=== PATIENT | male | born 1955 | race Caucasian/White ===

== ENCOUNTER 2020-06-15 08:29 | Inpatient (IN) | payer MEDICARE, BC ==
[2020-06-15 12:00] VITALS: BP 168/95
[2020-06-15] MEDS ORDERED: Magnesium Hydroxide (MOM) 30 mL UDC PO PRN (12:34)
--- NOTE | 2020-06-15 18:29 | History and Physical ---
History of Present Illness - HPI Chief Complaint: Psychosis HPI: * Transferred from [facility] * Transferred for suicidal ideation and homicidal ideation Vital Signs: Last Vital Signs Temp 99.2 F 06/15/20 14:00 Pulse 67 06/15/20 14:00 Resp 20 06/15/20 14:00 BP 136/95 06/15/20 14:00 Pulse Ox 98 06/15/20 14:00 Past Medical History Cardiovascular: Report: HTN Pulmonary: Report: No Pertinent Hx EXEC. CREATIVE DIRECTOR: Report: No Pertinent Hx GI: Report: GERD Psych: Report: Anxiety Musculoskeletal: Report: Low Back Pain Rheumatologic: Report: Other (Osteoporosis) Infectious Disease: Report: No Pertinent Hx Renal/: Report: No Pertinent Hx Endocrine: Report: Hypothyroidism Dermatology: Report: No Pertinent Hx Other History: * Gastrinoma * Perforated intestine - Past Surgical History Past Surgical History: Other (Abdominal Surgery Esophageal Dilation) Family Medical History - Family Member Father History Unknown: Yes Social History Smoke: No Alcohol: None Drugs: None Lives: Other (Unknown) - Medications Home Medications: Home Medication Medication Instructions Recorded Type Acetaminophen [Pain Relief] 1,000 mg PO 06/15/20 History Alprazolam 0.5 mg PO PRN 06/15/20 History Atorvastatin Calcium [Lipitor] 40 mg PO HS 06/15/20 History Levothyroxine Sodium [Levoxyl] 100 mcg PO QDAC 06/15/20 History Pantoprazole Sodium 40 mg PO QDAC 06/15/20 History QUEtiapine Fumarate [SEROquel] 25 mg PO DAILY 06/15/20 History - Allergies Allergies/Adverse Reactions: Allergies Allergy/AdvReac Type Severity Reaction Status Date / Time codeine Allergy Unverified 06/15/20 12:04 morphine Allergy Unverified 06/15/20 12:04 Review of Systems - Review of Systems Constitutional: Report: No Significant Eyes: Report: No Significant ENT: Report: No Significant Respiratory: Report: No Significant Cardiovascular: Report: No Significant Gastrointestinal: Report: No Significant Genitourinary: Report: No Significant Musculoskeletal: Report: No Significant Skin: Report: No Significant Neurological: Report: No Significant Physical Exam - Physical Exam HEENT: Report: Ears Nose Throat within normal limits, Pharnyx within normal limits Neck: Report: Within normal limits Cardiovascular Systems: Report: Regular, Rate and Rhythm, no murmurs noted Respiratory: Report: Clear to Auscultation of lung carlos, Breath Sounds are within normal limits Abdomen: Report: Non-tender to palpation, Bowel Sounds are within normal limits Back: Report: Inspection of back is within normal limits. Extremities: Report: Non-tender to palpation., Patient had full range of motion , No pedal edema was noted on inspection Skin: Report: Color of skin is within normal limits, Warm, Dry, No Rashes noted of the skin Neuro/Psych: Report: CN II-XII intact, No motor deficit, No sensory deficit, No new focal deficits - Lab Results All Lab Results last 24 hours: Laboratory Results - last 24 hr 06/15/20 11:59 POC Glucose 97 - Assessment Assessment: * Acute Psychosis * Allergies to Codeine and Morphine * GERD * Anxiety * HTN * Backache * Osteoporosis * Gastrinoma * H/O Perforated Intestine * S/P Abdominal Surgery * S/P Esophageal Dilation - Plan Plan: * Admit to Geropsych unit * Psychiatry consult * Obtain labs * Continue home meds Cranial Nerve Assessment - CRANIAL NERVES alcohol swab:: Yes Distinguishes movements in peripheral field.:: Yes up, down, sideways:: Yes on forehead, cheeks and chin, chews symmetrically:: Yes FACIAL VII: upper: Frowns Symmetrically:: Yes FACIAL VII: Lower: Smiles Symmetrically:: Yes both ears:: Yes GLOSS-PHARYNGEAL IX: Has gag reflex:: Yes VAGUS X: Can make guttural sounds:: Yes ACCESSORY XI: Shrugs shoulders symmetrically:: Yes tremors or fasciculation's:: Yes - MOTOR spasticity, cogwheel, atrophy, tremor, asterixis, other: Yes - COORDINATION Finger to nose, heel to hilliard, KRISTAL, gait, Romberg: Yes - SENSORY signs, Brudzinski, Kernig, neck rigidity:: Yes - REFLEXES Brachioradials Right:: Yes Brachioradials Left:: Yes Biceps Right:: Yes Biceps Left:: Yes Triceps Right:: Yes Triceps Left:: Yes Knee Right:: Yes Knee Left:: Yes Ankle Right:: Yes Ankle Left:: Yes Babinski Right:: No Babinski Left:: No
[2020-06-15] MEDS ORDERED: Acetaminophen 500 MG TAB PO PRN (18:34)
[2020-06-15] MEDS ORDERED: Pantoprazole 40 mg EC Tab PO SCH (21:00)
[2020-06-15] MEDS ORDERED: Non-Formulary Item 1 EA (Atorvastatin Calcium [Lipitor] 40 MG) PO SCH (21:00)
[2020-06-16] MEDS: Levothyroxine 0.1 Mg Tab PO SCH (06:50)
[2020-06-16] MEDS: Pantoprazole 40 mg EC Tab PO SCH (06:51)
[2020-06-16] MEDS ORDERED: Pantoprazole 40 mg/Packet PO SCH (07:30)
[2020-06-16] MEDS ORDERED: Levothyroxine 0.1 Mg Tab PO SCH (07:30)
[2020-06-16] MEDS: Multivitamin Tab PO SCH (08:23)
[2020-06-16 14:03] LABS: CREATININE - SERUM 0.96 mg/dL (0.70-1.30); POTASSIUM SERUM 4.1 mmol/L (3.5-5.1)
[2020-06-16 14:04] LABS: BILIRUBIN,TOTAL 0.8 mg/dL (0.0-1.0); CALCIUM SERUM 9.5 mg/dL (8.4-10.2); TOTAL PROTEIN,SERUM 7.3 g/dL (6.4-8.3)
--- NOTE | 2020-06-16 21:31 | Psychiatric Evaluation ---
DATE OF SERVICE: 06/16/2020 IDENTIFYING INFORMATION: The patient is a 64-year-old male. HISTORY OF PRESENT ILLNESS: The patient was admitted on a hold for grave disability, unable to provide for self-care, worsening mood, psychotic symptoms, delusions and confusion. The patient himself was not a very good historian. He admits that he has been depressed for the last 1-2 years, unable to sleep, unable to eat, hearing voices telling him Satan is coming. They are not command hallucination. He has been hearing voices all the time for the last 2-3 years. He denies any current intent to harm himself or anyone. He reports paranoid, delusional onset of mental illness this interval of this has been going on for the last 2 years. PAST PSYCHIATRIC HISTORY: The patient reported that he has a history of prior hospitalization 2 years ago. He was in hospitalization, he said for a year, I am not sure if this is correct. SUBSTANCE ABUSE HISTORY: The patient denies any current substance abuse. He has been sober for years. He used to use cocaine and THC. MEDICAL HISTORY: Deferred to the medical doctor. FAMILY AND SOCIAL HISTORY: The patient has been since 1975, has 3 girls. He reports that he has high school education, worked in construction. The patient reports his is 39, which is probably incorrected, he report the age of his children, a 34, 36, and 37 unless he is a different one, unable to tell me that. He denies family psychiatric disorder. Denies any history of abuse. MENTAL STATUS EXAMINATION: The patient is appropriately dressed, not well groomed. He was in bed. He has no eye contact, whatsoever. He was rambling at times. He was alert. He was unable to tell me the date. He knew he was in the hospital because of COVID-19 at the beginning, then later agreed that he has been depressed, hearing voices. He was hearing voices of demons telling him, Satan is coming. He denies any intent to harm himself or anyone. He seems to have average intelligence just prior to give information, fund of knowledge and knowledge of the president of [facility]. Concentration is poor, at times unable to answer questions appropriately and spell forward and backward. Long-term is good significant for age; however, unable to remember the age of his 's. Recent memory is poor, unable to remember exact details of that admission, has to be prompted, he felt he was here for COVID-19. Immediate memory is poor, cannot concentrate enough and repeat things after me. Insight about his illness is poor, does not realize what problem he has. Judgment is poor with him hearing voices. IMPRESSION: Major depression, recurrent, severe, with psychosis. MEDICAL DIAGNOSES: Deferred to the medical doctor. His asset, he is accepting treatment. Negative poor coping skills. INITIAL TREATMENT PLAN: The patient will be continued with the Seroquel, will be increasing the dose. He will do adding Lexapro. We will do group therapy, milieu therapy, and individual therapy. ESTIMATED LENGTH OF STAY: 3-7 days. DISCHARGE CRITERIA: Decreasing psychosis, no longer suicidal after discharge, outpatient treatment. JOB# [id number]
[2020-06-17] MEDS ORDERED: Haloperidol Lactate 5 mg/mL 1mL Vial IM ONE (05:20)
[2020-06-17] MEDS: Pantoprazole 40 mg EC Tab PO SCH (07:13)
[2020-06-17] MEDS: Levothyroxine 0.1 Mg Tab PO SCH (07:13)
[2020-06-17 07:29] LABS: A1C 5.7 % (4.8-5.6)
[2020-06-17] MEDS: Multivitamin Tab PO SCH (08:49)
--- NOTE | 2020-06-17 17:29 | Progress Notes ---
DATE: 06/17/2020 Case was discussed with staff of the patient, reviewed records. He was very agitated this morning, had to be medicated. He was delusional, not making sense, paranoid, continues to have poor insight, unable to make safe plan for self-care. No side effects with the medication, no sedation, no nausea, no extrapyramidal symptoms. I will be increasing his Seroquel to 50 mg twice a day and continue with the 50 mg at bedtime. He is still confused, easily agitated, overwhelmed. I will continue to work with the patient in group therapy, milieu therapy, and adjust the medication as needed. JOB# [id number]
[2020-06-18] MEDS: Levothyroxine 0.1 Mg Tab PO SCH (06:31)
[2020-06-18] MEDS: Pantoprazole 40 mg EC Tab PO SCH (06:31)
[2020-06-18] MEDS: Multivitamin Tab PO SCH (08:29)
--- NOTE | 2020-06-18 19:47 | Progress Notes ---
DATE: 06/18/2020 Case was discussed with staff of the patient, reviewed records. The patient apparently could not sleep well last night, continues to be confused, delusional, continues to be unable to make safe plan for self-care. Continues to have poor insight, unpredictable, impulsive, needing redirection. I will be increasing his Seroquel dose to 150 mg at bedtime to help with his sleep. The patient is unpredictable, impulsive, needing redirection. He is also on Ambien 5 mg at bedtime, so that does not work, we will make further adjustment. We will continue to work with the patient in group therapy, milieu therapy, and adjust the medication as needed. JOB# [id number]
[2020-06-19] MEDS: Pantoprazole 40 mg EC Tab PO SCH (06:55)
[2020-06-19] MEDS: Levothyroxine 0.1 Mg Tab PO SCH (06:55)
[2020-06-19] MEDS: Multivitamin Tab PO SCH (08:46)
--- NOTE | 2020-06-19 12:14 | Internal Medicine Prog Note ---
Internal Medicine Subjective - Subjective Service Date: 06/19/20 Patient seen and examined:: without staff Patient is:: awake Patient Complaints of:: congestion Per staff patient has:: no adverse event Internal Medicine Objective - Results Result Diagrams: 06/16/20 10:33 Recent Labs: Laboratory Last Values Sodium 126 mmol/L (136-145) L 06/16/20 10:33 Potassium 4.1 mmol/L (3.5-5.1) 06/16/20 10:33 Chloride 93 mmol/L (98-107) L 06/16/20 10:33 Carbon Dioxide 24 mmol/L (23-29) 06/16/20 10:33 Anion Gap 13 (5-15) 06/16/20 10:33 BUN 13 mg/dL (8-21) 06/16/20 10:33 Creatinine 0.96 mg/dL (0.70-1.30) 06/16/20 10:33 Glucose 85 mg/dL (70-99) 06/16/20 10:33 POC Glucose 97 MG/DL (70 - 105) 06/15/20 11:59 Calcium 9.5 mg/dL (8.4-10.2) 06/16/20 10:33 Total Bilirubin 0.8 mg/dL (0.0-1.0) 06/16/20 10:33 AST 26 U/L (10-37) 06/16/20 10:33 ALT 29 U/L (12-78) 06/16/20 10:33 Alkaline Phosphatase 53 U/L (46-116) 06/16/20 10:33 Total Protein 7.3 g/dL (6.4-8.3) 06/16/20 10:33 Albumin 3.9 g/dL (3.4-5.0) 06/16/20 10:33 Triglycerides 59 mg/dL (30-150) 06/16/20 10:33 Cholesterol 141 mg/dL (<200) 06/16/20 10:33 LDL Cholesterol 59 mg/dL (0-129) 06/16/20 10:33 HDL Cholesterol 73 mg/dL (>45) 06/16/20 10:33 - Physical Exam Vitals and I&O: Vital Signs Temp 0 F 06/18/20 20:43 Pulse 72 06/18/20 14:50 Resp 20 06/18/20 14:50 BP 136/74 06/18/20 14:50 Pulse Ox 96 06/18/20 14:50 Intake & Output 06/18/20 06/19/20 06/19/20 18:59 06:59 18:59 Intake Total 240 Balance 240 Intake: Oral 240 Other: # Voids 3 # Bowel Movements 0 Active Medications: Current Medications Acetaminophen (Tylenol Extra Strength) 1,000 mg PO Q6H PRN PRN Reason: Pain (Mild 1-3) Stop: 08/14/20 18:44 Last Admin: 06/17/20 20:15 Dose: 1,000 mg Atorvastatin Calcium (Lipitor) 40 mg PO HS ANDRES; Protocol Stop: 08/14/20 20:59 Last Admin: 06/18/20 21:29 Dose: Not Given Diphenhydramine HCl (Benadryl) 50 mg PO QID PRN PRN Reason: Itching Stop: 08/15/20 17:21 Last Admin: 06/18/20 06:31 Dose: 50 mg Escitalopram Oxalate (Lexapro) 10 mg PO DAILY ANDRES; Protocol Stop: 08/16/20 08:59 Last Admin: 06/19/20 08:46 Dose: 10 mg Latanoprost (Xalatan 0.005% Ophth Soln) 1 drop EACH EYE HS ANDRES Stop: 08/15/20 20:59 Last Admin: 06/18/20 21:28 Dose: Not Given Levothyroxine Sodium (Synthroid) 0.1 mg PO QDAC ANDRES Stop: 08/15/20 07:29 Last Admin: 06/19/20 06:55 Dose: Not Given Lorazepam (Ativan) 0.5 mg PO Q4HR PRN; Protocol PRN Reason: Anxiety Stop: 07/15/20 12:33 Last Admin: 06/18/20 01:43 Dose: 0.5 mg Magnesium Hydroxide (Milk Of Magnesia) 30 ml PO HS PRN PRN Reason: Constipation Multivitamins/Vitamin C (Theragran) 1 tab PO DAILY ANDRES Stop: 08/15/20 08:59 Last Admin: 06/19/20 08:46 Dose: 1 tab Pantoprazole Sodium (Protonix) 40 mg PO QDAC ANDRES Stop: 08/15/20 07:29 Last Admin: 06/19/20 06:55 Dose: Not Given Quetiapine Fumarate (Seroquel) 50 mg PO BID ANDRES; Protocol Stop: 08/16/20 16:59 Last Admin: 06/19/20 08:46 Dose: 50 mg Quetiapine Fumarate (Seroquel) 150 mg PO HS ANDRES; Protocol Stop: 08/17/20 20:59 Last Admin: 06/18/20 21:29 Dose: Not Given Zolpidem Tartrate (Ambien) 5 mg PO HS PRN PRN Reason: Insomnia Stop: 08/14/20 12:33 Last Admin: 06/17/20 20:14 Dose: 5 mg General: weak HEENT: NC/AT, PERRLA Neck: Supple Lungs: CTAB Cardiovascular: RRR Abdomen: soft Extremities: clear Neurological: no change Internal Medicine Assmt/Plan - Assessment Assessment: 1. Bhargav-Su 2. HTN 3. Hypothyroidism - Plan Plan: continue supportive care continue synthroid d/w r.n. reviewed complete medical records
[2020-06-19 14:17] LABS: BILIRUBIN,TOTAL 0.9 mg/dL (0.0-1.0); CALCIUM SERUM 9.4 mg/dL (8.4-10.2); CREATININE - SERUM 0.91 mg/dL (0.70-1.30); TOTAL PROTEIN,SERUM 6.9 g/dL (6.4-8.3)
--- NOTE | 2020-06-19 20:34 | Progress Notes ---
DATE: 06/19/2020 Case was discussed with staff of the patient, reviewed records. The patient has been refusing medication yesterday and today. Continues to be unpredictable, impulsive, paranoid, and delusional. Continues to be psychotic, unable to make safe plan for self-care. He hears voices. The voices tell him that Satan is coming. When I tried talk to him about not taking his medication, unable to answer any of my questions. I discussed with him the side effects. The patient in general is still a poor historian, admits to using cocaine and THC and I will be initiating a Riese on this patient for his treatment and he is currently on Lexapro 10 mg daily, Seroquel 50 mg twice a day and 150 mg at bedtime. I will continue outpatient group therapy, milieu therapy, adjust medication as needed. JOB# [id number]
[2020-06-20] MEDS: Pantoprazole 40 mg EC Tab PO SCH (06:43)
[2020-06-20] MEDS: Levothyroxine 0.1 Mg Tab PO SCH (06:43)
[2020-06-20] MEDS: Multivitamin Tab PO SCH (09:31)
--- NOTE | 2020-06-20 14:42 | Internal Medicine Prog Note ---
Internal Medicine Subjective - Subjective Service Date: 06/20/20 Patient seen and examined:: without staff Patient is:: awake Patient Complaints of:: congestion Per staff patient has:: no adverse event, no episodes of fall Internal Medicine Objective - Results Result Diagrams: 06/19/20 09:30 Recent Labs: Laboratory Last Values Sodium 125 mmol/L (136-145) L 06/19/20 09:30 Potassium 4.0 mmol/L (3.5-5.1) 06/19/20 09:30 Chloride 95 mmol/L (98-107) L 06/19/20 09:30 Carbon Dioxide 20 mmol/L (23-29) L 06/19/20 09:30 Anion Gap 14 (5-15) 06/19/20 09:30 BUN 22 mg/dL (8-21) H 06/19/20 09:30 Creatinine 0.91 mg/dL (0.70-1.30) 06/19/20 09:30 Glucose 103 mg/dL (70-99) H 06/19/20 09:30 POC Glucose 97 MG/DL (70 - 105) 06/15/20 11:59 Calcium 9.4 mg/dL (8.4-10.2) 06/19/20 09:30 Total Bilirubin 0.9 mg/dL (0.0-1.0) 06/19/20 09:30 AST 47 U/L (10-37) H 06/19/20 09:30 ALT 37 U/L (12-78) 06/19/20 09:30 Alkaline Phosphatase 49 U/L (46-116) 06/19/20 09:30 Total Protein 6.9 g/dL (6.4-8.3) 06/19/20 09:30 Albumin 3.8 g/dL (3.4-5.0) 06/19/20 09:30 Triglycerides 59 mg/dL (30-150) 06/16/20 10:33 Cholesterol 141 mg/dL (<200) 06/16/20 10:33 LDL Cholesterol 59 mg/dL (0-129) 06/16/20 10:33 HDL Cholesterol 73 mg/dL (>45) 06/16/20 10:33 - Physical Exam Vitals and I&O: Vital Signs Temp 0 F 06/19/20 20:56 Pulse 72 06/19/20 15:36 Resp 20 06/19/20 20:00 BP 144/81 06/19/20 15:36 Pulse Ox 97 06/19/20 15:36 Intake & Output 06/19/20 06/20/20 06/20/20 18:59 06:59 18:59 Intake Total 800 480 Balance 800 480 Intake: Oral 800 480 Other: # Voids 3 2 # Bowel Movements 1 0 Active Medications: Current Medications Acetaminophen (Tylenol Extra Strength) 1,000 mg PO Q6H PRN PRN Reason: Pain (Mild 1-3) Stop: 08/14/20 18:44 Last Admin: 06/17/20 20:15 Dose: 1,000 mg Atorvastatin Calcium (Lipitor) 40 mg PO HS ANDRES; Protocol Stop: 08/14/20 20:59 Last Admin: 06/19/20 20:25 Dose: 40 mg Diphenhydramine HCl (Benadryl) 50 mg PO QID PRN PRN Reason: Itching Stop: 08/15/20 17:21 Last Admin: 06/18/20 06:31 Dose: 50 mg Escitalopram Oxalate (Lexapro) 10 mg PO DAILY ANDRES; Protocol Stop: 08/16/20 08:59 Last Admin: 06/20/20 09:31 Dose: 10 mg Latanoprost (Xalatan 0.005% Ophth Soln) 1 drop EACH EYE HS ANDRES Stop: 08/15/20 20:59 Last Admin: 06/19/20 20:26 Dose: Not Given Levothyroxine Sodium (Synthroid) 0.1 mg PO QDAC ANDRES Stop: 08/15/20 07:29 Last Admin: 06/20/20 06:43 Dose: 0.1 mg Lorazepam (Ativan) 0.5 mg PO Q4HR PRN; Protocol PRN Reason: Anxiety Stop: 07/15/20 12:33 Last Admin: 06/20/20 09:31 Dose: 0.5 mg Magnesium Hydroxide (Milk Of Magnesia) 30 ml PO HS PRN PRN Reason: Constipation Multivitamins/Vitamin C (Theragran) 1 tab PO DAILY ANDRES Stop: 08/15/20 08:59 Last Admin: 06/20/20 09:31 Dose: 1 tab Pantoprazole Sodium (Protonix) 40 mg PO QDAC ANDRES Stop: 08/15/20 07:29 Last Admin: 06/20/20 06:43 Dose: 40 mg Quetiapine Fumarate (Seroquel) 50 mg PO BID ANDRES; Protocol Stop: 08/16/20 16:59 Last Admin: 06/20/20 09:31 Dose: 50 mg Quetiapine Fumarate (Seroquel) 150 mg PO HS ANDRES; Protocol Stop: 08/17/20 20:59 Last Admin: 06/19/20 20:26 Dose: 150 mg Zolpidem Tartrate (Ambien) 5 mg PO HS PRN PRN Reason: Insomnia Stop: 08/14/20 12:33 Last Admin: 06/19/20 20:26 Dose: 5 mg General: weak HEENT: NC/AT, PERRLA Neck: Supple Lungs: CTAB Cardiovascular: RRR Abdomen: soft Extremities: clear Neurological: no change Internal Medicine Assmt/Plan - Assessment Assessment: 1. Bhargav-Su 2. HTN 3. Hypothyroidism 4. Hyponatremia - Plan Plan: continue supportive care continue synthroid d/w r.n. reviewed complete medical records Nutritional Asmnt/Malnutr-PDOC - Dietary Evaluation Malnutrition Findings (Please click <Entered> for more info): Nutritional Asmnt/Malnutrition Start: 06/19/20 13: 59 Text: Status: Complete Freq: Protocol: Document 06/19/20 14:00 RAGHU (Rec: 06/19/20 14:03 RAGHU [id number]) Nutritional Asmnt/Malnutrition Patient General Information Nutritional Screening Moderate Risk Diagnosis Grave Disability Hold Pertinent Medical Hx/Surgical Hx GERD, HTN, Anxiety, Osteoporosis, Hypothyroidism, Gastrinoma, Perforated Intestine Subjective Information Pt is a 64-year-old male admitted on 06/15 d/t hold for Grave Disability, delusions and confusion. Pt is eating an estimated 100% of meals since admit date (x3 days) Per Meal/Nutrition Activity Record. Dietary is currently providing an estimated 1750 kcals and 107 gm Pro to meet 100% kcal and 100+% Pro needs. Per Psychiatric evaluation, Pt admits depression, being unable to eat for the last 1-2 years. Visited pt in room, states hes eating fine. When asked about his appetite and previous eating habits he insisted, its done, it doesn t matter, pt would not say more after this. Anthropometrics HT: 57 WT: 130 LB (59.09 kg) BMI: 20.36 (normal) GI/ Skin Integrity GI: WNL, Soft, Non-tender, Flat BM: 06/17 x1 I/O: 240/Not Noted Skin: WNL, Intact Twan: 22 Diet Order: CCHO, Cardiac Estimated Energy Needs: ( Geriatric, CBW) 8736-2187 kcals (25-30 kcals/ kg) 60-70g Pro (1.0-1.2 g/kg) 4613-8383 ml (25-30 ml/kg) Current Diet Order/ Nutrition Support CCHO, Cardiac Patient / S.O Can Pertinent Medications Lipitor, Synthroid, MOM (PRN), Theragran, Protonix Pertinent Labs 06/16: Na 124, Cl 93 Nutritional Hx/Data Height 1.7 m Height (Calculated Centimeters) 170.2 Current Weight (lbs) 58.967 kg Weight (Calculated Kilograms) 59.0 Weight (Calculated Grams) 46069.0 Maribel Body Weight 148 LB (67.27 kg) % Maribel Body Weight 88 Body Mass Index (BMI) 20.3 Weight Status Approriate GI Symptoms Last BM 06/17 x1 Skin Integrity/Comment: Skin: WNL, Intact Twan: 22 Current %PO Good (75-100%) Estimated Nutritional Goals BEE in Kcals: Using Current wt Calories/Kcals/Kg 25-30 Kcals Calculated 1199-4511 Protein: Using Current wt Protein g/k.0-1.2 Protein Calculated 60-70 Fluid: ml 5626-1507 ml (25-30 ml/kg) Nutritional Problem 1. Problem Problem Altered nutrition related labs Etiology r/t electrolyte imbalance Signs/Symptoms: aeb labs (06/16) Na 124, Cl 93. Malnutrition Related to Morbid Obesity Malnutrition related to morbid obesity No Intervention/Recommendation Comments Continue CCHO, Cardiac diet as tolerated. Expected Outcomes/Goals Expected Outcomes/Goals 1.PO intake to continue to meet >75% of estimated nutritional needs. 2.Monitor PO intake, wt, nutrition related labs to trend WNL, and skin integrity. 3.F/U as low risk in 7-10 days , 06/26-06/29.
--- NOTE | 2020-06-20 23:33 | Progress Notes ---
DATE: 06/20/2020 Case was discussed with staff of the patient, reviewed records. Felix mulligan is not scheduled yet, which I found it yesterday. He already has a parole causing today for his 5250 hold. His left me a message to call his doctor, Dr. ismael chawla, his primary care physician. I called his cell phone back to convey the message because there was no place and also I left off in his office a message, gave him my cell phone. The patient continues to be in isolation, continues to have poor insight, continues to be unable to state a safe plan for self-care. The staff reports, however, he started taking his medication. No side effects with the medication, no sedation, no nausea, no extrapyramidal symptoms. He admitted to feeling depressed, but yet he is still a very poor historian. He is not sure why he is here. He asked me to explain to him why he is here and I told him what happened when he came, he is not sure if this is true or not. He continues to be confused. He has cognitive disability and we will continue outpatient group therapy, milieu therapy, and adjust medications as needed. JOB# [id number] NICOLE
[2020-06-21] MEDS: Pantoprazole 40 mg EC Tab PO SCH (06:40)
[2020-06-21] MEDS: Levothyroxine 0.1 Mg Tab PO SCH (06:40)
[2020-06-21] MEDS: Multivitamin Tab PO SCH (08:45)
--- NOTE | 2020-06-21 12:07 | Progress Notes ---
DATE: 06/21/2020 Case was discussed with staff of the patient, reviewed records. I spoke to his physician yesterday, Dr. Benson Chris, who told me that the patient has never been seen by a psychiatrist before that has been depressed for the past 2 years with multiple losses. They left their home in [place], now they live in a small apartment. He has a lot of medical condition. He has gastrinoma. He had multiple surgeries and has been in lot of pain, has been on opiates. The patient has been depressed for the last 2 years. The patient so far has been taking medication with no side effects. He is sleeping better, eating better. He is still internally preoccupied. Continues to be unable to participate in meaningful conversation or make safe plan for self-care. No side effects with the medication, no sedation, no nausea, no extrapyramidal symptoms. I am trying to reach his for further information. We will continue outpatient group therapy, milieu therapy, adjust medication as needed. JOB# [id number] [facility]
--- NOTE | 2020-06-21 13:55 | Internal Medicine Prog Note ---
Internal Medicine Subjective - Subjective Service Date: 06/21/20 Patient seen and examined:: without staff Patient is:: awake Patient Complaints of:: congestion Per staff patient has:: no adverse event, no episodes of fall Internal Medicine Objective - Results Result Diagrams: 06/19/20 09:30 Recent Labs: Laboratory Last Values Sodium 125 mmol/L (136-145) L 06/19/20 09:30 Potassium 4.0 mmol/L (3.5-5.1) 06/19/20 09:30 Chloride 95 mmol/L (98-107) L 06/19/20 09:30 Carbon Dioxide 20 mmol/L (23-29) L 06/19/20 09:30 Anion Gap 14 (5-15) 06/19/20 09:30 BUN 22 mg/dL (8-21) H 06/19/20 09:30 Creatinine 0.91 mg/dL (0.70-1.30) 06/19/20 09:30 Glucose 103 mg/dL (70-99) H 06/19/20 09:30 POC Glucose 97 MG/DL (70 - 105) 06/15/20 11:59 Calcium 9.4 mg/dL (8.4-10.2) 06/19/20 09:30 Total Bilirubin 0.9 mg/dL (0.0-1.0) 06/19/20 09:30 AST 47 U/L (10-37) H 06/19/20 09:30 ALT 37 U/L (12-78) 06/19/20 09:30 Alkaline Phosphatase 49 U/L (46-116) 06/19/20 09:30 Total Protein 6.9 g/dL (6.4-8.3) 06/19/20 09:30 Albumin 3.8 g/dL (3.4-5.0) 06/19/20 09:30 Triglycerides 59 mg/dL (30-150) 06/16/20 10:33 Cholesterol 141 mg/dL (<200) 06/16/20 10:33 LDL Cholesterol 59 mg/dL (0-129) 06/16/20 10:33 HDL Cholesterol 73 mg/dL (>45) 06/16/20 10:33 - Physical Exam Vitals and I&O: Vital Signs Temp 99.4 F 06/21/20 06:12 Pulse 97 06/21/20 06:12 Resp 19 06/21/20 06:12 BP 138/89 06/21/20 06:12 Pulse Ox 95 06/21/20 06:12 Intake & Output 06/20/20 06/21/20 06/21/20 18:59 06:59 18:59 Intake Total 1000 120 Balance 1000 120 Intake: Oral 1000 120 Other: # Voids 2 3 # Bowel Movements 0 Active Medications: Current Medications Acetaminophen (Tylenol Extra Strength) 1,000 mg PO Q6H PRN PRN Reason: Pain (Mild 1-3) Stop: 08/14/20 18:44 Last Admin: 06/17/20 20:15 Dose: 1,000 mg Atorvastatin Calcium (Lipitor) 40 mg PO HS ANDRES; Protocol Stop: 08/14/20 20:59 Last Admin: 06/20/20 20:13 Dose: 40 mg Diphenhydramine HCl (Benadryl) 50 mg PO QID PRN PRN Reason: Itching Stop: 08/15/20 17:21 Last Admin: 06/18/20 06:31 Dose: 50 mg Escitalopram Oxalate (Lexapro) 10 mg PO DAILY ANDRES; Protocol Stop: 08/16/20 08:59 Last Admin: 06/21/20 08:45 Dose: 10 mg Latanoprost (Xalatan 0.005% Oph Soln) 1 drop EACH EYE HS ANDRES Stop: 08/15/20 20:59 Last Admin: 06/20/20 20:13 Dose: Not Given Levothyroxine Sodium (Synthroid) 0.1 mg PO QDAC ANDRES Stop: 08/15/20 07:29 Last Admin: 06/21/20 06:40 Dose: 0.1 mg Lorazepam (Ativan) 0.5 mg PO Q4HR PRN; Protocol PRN Reason: Anxiety Stop: 07/15/20 12:33 Last Admin: 06/20/20 09:31 Dose: 0.5 mg Magnesium Hydroxide (Milk Of Magnesia) 30 ml PO HS PRN PRN Reason: Constipation Multivitamins/Vitamin C (Theragran) 1 tab PO DAILY ANDRES Stop: 08/15/20 08:59 Last Admin: 06/21/20 08:45 Dose: 1 tab Pantoprazole Sodium (Protonix) 40 mg PO QDAC ANDRES Stop: 08/15/20 07:29 Last Admin: 08/19/20 06:40 Dose: 40 mg Quetiapine Fumarate (Seroquel) 50 mg PO BID ANDRES Stop: 08/19/20 16:59 Last Admin: 06/21/20 08:46 Dose: 50 mg Quetiapine Fumarate (Seroquel) 200 mg PO HS ANDRES Stop: 08/20/20 20:59 Zolpidem Tartrate (Ambien) 5 mg PO HS PRN PRN Reason: Insomnia Stop: 08/14/20 12:33 Last Admin: 06/19/20 20:26 Dose: 5 mg General: weak HEENT: NC/AT, PERRLA Neck: Supple Lungs: CTAB Cardiovascular: RRR Abdomen: soft Extremities: clear Neurological: no change Internal Medicine Assmt/Plan - Assessment Assessment: 1. Bhargav-Su 2. HTN 3. Hypothyroidism 4. Hyponatremia - Plan Plan: continue to monitor hyponatremia continue supportive care continue synthroid d/w r.n. reviewed complete medical records Nutritional Asmnt/Malnutr-PDOC - Dietary Evaluation Malnutrition Findings (Please click <Entered> for more info): Nutritional Asmnt/Malnutrition Start: 06/19/20 13: 59 Text: Status: Complete Freq: Protocol: Document 06/19/20 14:00 RAGHU (Rec: 06/19/20 14:03 RAGHU [id number]) Nutritional Asmnt/Malnutrition Patient General Information Nutritional Screening Moderate Risk Diagnosis Grave Disability Hold Pertinent Medical Hx/Surgical Hx GERD, HTN, Anxiety, Osteoporosis, Hypothyroidism, Gastrinoma, Perforated Intestine Subjective Information Pt is a 64-year-old male admitted on 06/15 d/t hold for Grave Disability, delusions and confusion. Pt is eating an estimated 100% of meals since admit date (x3 days) Per Meal/Nutrition Activity Record. Dietary is currently providing an estimated 1750 kcals and 107 gm Pro to meet 100% kcal and 100+% Pro needs. Per Psychiatric evaluation, Pt admits depression, being unable to eat for the last 1-2 years. Visited pt in room, states hes eating fine. When asked about his appetite and previous eating habits he insisted, its done, it doesn t matter, pt would not say more after this. Anthropometrics HT: 57 WT: 130 LB (59.09 kg) BMI: 20.36 (normal) GI/ Skin Integrity GI: WNL, Soft, Non-tender, Flat BM: 06/17 x1 I/O: 240/Not Noted Skin: WNL, Intact Twan: 22 Diet Order: CCHO, Cardiac Estimated Energy Needs: ( Geriatric, CBW) 5166-0622 kcals (25-30 kcals/ kg) 60-70g Pro (1.0-1.2 g/kg) 8636-3792 ml (25-30 ml/kg) Current Diet Order/ Nutrition Support CCHO, Cardiac Patient / S.O Can Pertinent Medications Lipitor, Synthroid, MOM (PRN), Theragran, Protonix Pertinent Labs 06/16: Na 124, Cl 93 Nutritional Hx/Data Height 1.7 m Height (Calculated Centimeters) 170.2 Current Weight (lbs) 58.967 kg Weight (Calculated Kilograms) 59.0 Weight (Calculated Grams) 02916.0 [place] Body Weight 148 LB (67.27 kg) % [place] Body Weight 88 Body Mass Index (BMI) 20.3 Weight Status Approriate GI Symptoms Last BM 06/17 x1 Skin Integrity/Comment: Skin: WNL, Intact Twan: 22 Current %PO Good (75-100%) Estimated Nutritional Goals BEE in Kcals: Using Current wt Calories/Kcals/Kg 25-30 Kcals Calculated 2211-6769 Protein: Using Current wt Protein g/k.0-1.2 Protein Calculated 60-70 Fluid: ml 0306-1911 ml (25-30 ml/kg) Nutritional Problem 1. Problem Problem Altered nutrition related labs Etiology r/t electrolyte imbalance Signs/Symptoms: aeb labs (06/16) Na 124, Cl 93. Malnutrition Related to Morbid Obesity Malnutrition related to morbid obesity No Intervention/Recommendation Comments Continue CCHO, Cardiac diet as tolerated. Expected Outcomes/Goals Expected Outcomes/Goals 1.PO intake to continue to meet >75% of estimated nutritional needs. 2.Monitor PO intake, wt, nutrition related labs to trend WNL, and skin integrity. 3.F/U as low risk in 7-10 days , 06/26-06/29.
[2020-06-22] MEDS: Levothyroxine 0.1 Mg Tab PO SCH (06:36)
[2020-06-22] MEDS: Pantoprazole 40 mg EC Tab PO SCH (06:36)
[2020-06-22] MEDS: Multivitamin Tab PO SCH (08:56)
--- NOTE | 2020-06-22 15:42 | Internal Medicine Prog Note ---
Internal Medicine Subjective - Subjective Service Date: 06/22/20 Patient seen and examined:: without staff Patient is:: awake Patient Complaints of:: congestion Per staff patient has:: no adverse event, no episodes of fall Internal Medicine Objective - Results Result Diagrams: 06/19/20 09:30 Recent Labs: Laboratory Last Values Sodium 125 mmol/L (136-145) L 06/19/20 09:30 Potassium 4.0 mmol/L (3.5-5.1) 06/19/20 09:30 Chloride 95 mmol/L (98-107) L 06/19/20 09:30 Carbon Dioxide 20 mmol/L (23-29) L 06/19/20 09:30 Anion Gap 14 (5-15) 06/19/20 09:30 BUN 22 mg/dL (8-21) H 06/19/20 09:30 Creatinine 0.91 mg/dL (0.70-1.30) 06/19/20 09:30 Glucose 103 mg/dL (70-99) H 06/19/20 09:30 POC Glucose 97 MG/DL (70 - 105) 06/15/20 11:59 Calcium 9.4 mg/dL (8.4-10.2) 06/19/20 09:30 Total Bilirubin 0.9 mg/dL (0.0-1.0) 06/19/20 09:30 AST 47 U/L (10-37) H 06/19/20 09:30 ALT 37 U/L (12-78) 06/19/20 09:30 Alkaline Phosphatase 49 U/L (46-116) 06/19/20 09:30 Total Protein 6.9 g/dL (6.4-8.3) 06/19/20 09:30 Albumin 3.8 g/dL (3.4-5.0) 06/19/20 09:30 Triglycerides 59 mg/dL (30-150) 06/16/20 10:33 Cholesterol 141 mg/dL (<200) 06/16/20 10:33 LDL Cholesterol 59 mg/dL (0-129) 06/16/20 10:33 HDL Cholesterol 73 mg/dL (>45) 06/16/20 10:33 - Physical Exam Vitals and I&O: Vital Signs Temp 98.3 F 06/22/20 14:00 Pulse 73 06/22/20 14:00 Resp 20 06/22/20 14:00 BP 128/80 06/22/20 14:00 Pulse Ox 95 06/22/20 14:00 Intake & Output 06/21/20 06/22/20 06/22/20 18:59 06:59 18:59 Intake Total 1200 120 Balance 1200 120 Intake: Oral 1200 120 Other: # Voids 3 # Bowel Movements 1 Active Medications: Current Medications Acetaminophen (Tylenol Extra Strength) 1,000 mg PO Q6H PRN PRN Reason: Pain (Mild 1-3) Stop: 08/14/20 18:44 Last Admin: 06/17/20 20:15 Dose: 1,000 mg Atorvastatin Calcium (Lipitor) 40 mg PO HS ANDRES; Protocol Stop: 08/14/20 20:59 Last Admin: 06/21/20 20:16 Dose: 40 mg Diphenhydramine HCl (Benadryl) 50 mg PO QID PRN PRN Reason: Itching Stop: 08/15/20 17:21 Last Admin: 06/18/20 06:31 Dose: 50 mg Escitalopram Oxalate (Lexapro) 10 mg PO DAILY ANDRES; Protocol Stop: 08/16/20 08:59 Last Admin: 06/22/20 08:56 Dose: Not Given Latanoprost (Xalatan 0.005% Oph Soln) 1 drop EACH EYE HS ANDRES Stop: 08/15/20 20:59 Last Admin: 06/21/20 20:16 Dose: 1 drop Levothyroxine Sodium (Synthroid) 0.1 mg PO QDAC ANDRES Stop: 08/15/20 07:29 Last Admin: 06/22/20 06:36 Dose: 0.1 mg Lorazepam (Ativan) 0.5 mg PO Q4HR PRN; Protocol PRN Reason: Anxiety Stop: 07/15/20 12:33 Last Admin: 06/20/20 09:31 Dose: 0.5 mg Magnesium Hydroxide (Milk Of Magnesia) 30 ml PO HS PRN PRN Reason: Constipation Multivitamins/Vitamin C (Theragran) 1 tab PO DAILY ANDRES Stop: 08/15/20 08:59 Last Admin: 06/22/20 08:56 Dose: Not Given Pantoprazole Sodium (Protonix) 40 mg PO QDAC ANDRES Stop: 08/15/20 07:29 Last Admin: 06/22/20 06:36 Dose: 40 mg Quetiapine Fumarate (Seroquel) 50 mg PO BID ANDRES Stop: 08/19/20 16:59 Last Admin: 06/22/20 08:56 Dose: Not Given Quetiapine Fumarate (Seroquel) 200 mg PO HS ANDRES Stop: 08/20/20 20:59 Last Admin: 06/21/20 20:16 Dose: 200 mg Zolpidem Tartrate (Ambien) 5 mg PO HS PRN PRN Reason: Insomnia Stop: 08/14/20 12:33 Last Admin: 06/19/20 20:26 Dose: 5 mg General: weak HEENT: NC/AT, PERRLA Neck: Supple Lungs: CTAB Cardiovascular: RRR Abdomen: soft Extremities: clear Neurological: no change Internal Medicine Assmt/Plan - Assessment Assessment: 1. Hyponatremia 2. HTN 3. Hypothyroidism 4. charley-Su - Plan Plan: continue to monitor hyponatremia continue supportive care continue synthroid d/w r.n. reviewed complete medical records Nutritional Asmnt/Malnutr-PDOC - Dietary Evaluation Malnutrition Findings (Please click <Entered> for more info): Nutritional Asmnt/Malnutrition Start: 06/19/20 13: 59 Text: Status: Complete Freq: Protocol: Document 06/19/20 14:00 RAGHU (Rec: 06/19/20 14:03 RAGHU [id number]) Nutritional Asmnt/Malnutrition Patient General Information Nutritional Screening Moderate Risk Diagnosis Grave Disability Hold Pertinent Medical Hx/Surgical Hx GERD, HTN, Anxiety, Osteoporosis, Hypothyroidism, Gastrinoma, Perforated Intestine Subjective Information Pt is a 64-year-old male admitted on 06/15 d/t hold for Grave Disability, delusions and confusion. Pt is eating an estimated 100% of meals since admit date (x3 days) Per Meal/Nutrition Activity Record. Dietary is currently providing an estimated 1750 kcals and 107 gm Pro to meet 100% kcal and 100+% Pro needs. Per Psychiatric evaluation, Pt admits depression, being unable to eat for the last 1-2 years. Visited pt in room, states hes eating fine. When asked about his appetite and previous eating habits he insisted, its done, it doesn t matter, pt would not say more after this. Anthropometrics HT: 57 WT: 130 LB (59.09 kg) BMI: 20.36 (normal) GI/ Skin Integrity GI: WNL, Soft, Non-tender, Flat BM: 06/17 x1 I/O: 240/Not Noted Skin: WNL, Intact Twan: 22 Diet Order: CCHO, Cardiac Estimated Energy Needs: ( Geriatric, CBW) 5212-4564 kcals (25-30 kcals/ kg) 60-70g Pro (1.0-1.2 g/kg) 2731-5234 ml (25-30 ml/kg) Current Diet Order/ Nutrition Support CCHO, Cardiac Patient / S.O Can Pertinent Medications Lipitor, Synthroid, MOM (PRN), Theragran, Protonix Pertinent Labs 06/16: Na 124, Cl 93 Nutritional Hx/Data Height 1.7 m Height (Calculated Centimeters) 170.2 Current Weight (lbs) 58.967 kg Weight (Calculated Kilograms) 59.0 Weight (Calculated Grams) 56794.0 [place] Body Weight 148 LB (67.27 kg) % [place] Body Weight 88 Body Mass Index (BMI) 20.3 Weight Status Approriate GI Symptoms Last BM 06/17 x1 Skin Integrity/Comment: Skin: WNL, Intact Twan: 22 Current %PO Good (75-100%) Estimated Nutritional Goals BEE in Kcals: Using Current wt Calories/Kcals/Kg 25-30 Kcals Calculated 7536-4267 Protein: Using Current wt Protein g/k.0-1.2 Protein Calculated 60-70 Fluid: ml 9072-4059 ml (25-30 ml/kg) Nutritional Problem 1. Problem Problem Altered nutrition related labs Etiology r/t electrolyte imbalance Signs/Symptoms: aeb labs (06/16) Na 124, Cl 93. Malnutrition Related to Morbid Obesity Malnutrition related to morbid obesity No Intervention/Recommendation Comments Continue CCHO, Cardiac diet as tolerated. Expected Outcomes/Goals Expected Outcomes/Goals 1.PO intake to continue to meet >75% of estimated nutritional needs. 2.Monitor PO intake, wt, nutrition related labs to trend WNL, and skin integrity. 3.F/U as low risk in 7-10 days , 06/26-06/29.
--- NOTE | 2020-06-22 20:32 | Progress Notes ---
DATE: 06/22/2020 Case was discussed with staff of the patient and reviewed records. The patient continues to be confused, continues to be unable to make safe plan for self-care, continues to be depressed and overwhelmed. He is tolerating increase in Seroquel with no side effects, no sedation, and no nausea. He continues to need redirection. I tried to call his yesterday; however, I got his voicemail, so I am not sure how to get to his . The geriatric case manager also will retry calling her. I did discuss his care with his primary care physician. No side effects to the medication, no sedation, no nausea, and no extrapyramidal symptoms. He has not been acting out in the past few days, but he is still confused and overwhelmed. We will continue to work with the patient in group therapy, milieu therapy, and adjust the medication as needed. JOB# [id number]
[2020-06-23] MEDS: Pantoprazole 40 mg EC Tab PO SCH (06:34)
[2020-06-23] MEDS: Levothyroxine 0.1 Mg Tab PO SCH (06:34)
[2020-06-23] MEDS: Multivitamin Tab PO SCH (08:31)
--- NOTE | 2020-06-23 15:54 | Internal Medicine Prog Note ---
Internal Medicine Subjective - Subjective Service Date: 06/23/20 Patient seen and examined:: without staff Patient is:: awake Patient Complaints of:: congestion Per staff patient has:: no adverse event, no episodes of fall Internal Medicine Objective - Results Result Diagrams: 06/19/20 09:30 Recent Labs: Laboratory Last Values Sodium 125 mmol/L (136-145) L 06/19/20 09:30 Potassium 4.0 mmol/L (3.5-5.1) 06/19/20 09:30 Chloride 95 mmol/L (98-107) L 06/19/20 09:30 Carbon Dioxide 20 mmol/L (23-29) L 06/19/20 09:30 Anion Gap 14 (5-15) 06/19/20 09:30 BUN 22 mg/dL (8-21) H 06/19/20 09:30 Creatinine 0.91 mg/dL (0.70-1.30) 06/19/20 09:30 Glucose 103 mg/dL (70-99) H 06/19/20 09:30 POC Glucose 97 MG/DL (70 - 105) 06/15/20 11:59 Calcium 9.4 mg/dL (8.4-10.2) 06/19/20 09:30 Total Bilirubin 0.9 mg/dL (0.0-1.0) 06/19/20 09:30 AST 47 U/L (10-37) H 06/19/20 09:30 ALT 37 U/L (12-78) 06/19/20 09:30 Alkaline Phosphatase 49 U/L (46-116) 06/19/20 09:30 Total Protein 6.9 g/dL (6.4-8.3) 06/19/20 09:30 Albumin 3.8 g/dL (3.4-5.0) 06/19/20 09:30 Triglycerides 59 mg/dL (30-150) 06/16/20 10:33 Cholesterol 141 mg/dL (<200) 06/16/20 10:33 LDL Cholesterol 59 mg/dL (0-129) 06/16/20 10:33 HDL Cholesterol 73 mg/dL (>45) 06/16/20 10:33 - Physical Exam Vitals and I&O: Vital Signs Temp 99.6 F 06/23/20 14:00 Pulse 86 06/23/20 14:00 Resp 20 06/23/20 14:00 BP 132/72 06/23/20 14:00 Pulse Ox 96 06/23/20 14:00 Intake & Output 06/22/20 06/23/20 06/23/20 18:59 06:59 18:59 Intake Total 960 120 Balance 960 120 Intake: Oral 960 120 Other: # Voids 4 3 # Bowel Movements 0 Active Medications: Current Medications Acetaminophen (Tylenol Extra Strength) 1,000 mg PO Q6H PRN PRN Reason: Pain (Mild 1-3) Stop: 08/14/20 18:44 Last Admin: 06/17/20 20:15 Dose: 1,000 mg Atorvastatin Calcium (Lipitor) 40 mg PO HS ANDRES; Protocol Stop: 08/14/20 20:59 Last Admin: 06/22/20 20:52 Dose: 40 mg Diphenhydramine HCl (Benadryl) 50 mg PO QID PRN PRN Reason: Itching Stop: 08/15/20 17:21 Last Admin: 06/18/20 06:31 Dose: 50 mg Escitalopram Oxalate (Lexapro) 10 mg PO DAILY ANDRES; Protocol Stop: 08/16/20 08:59 Last Admin: 06/23/20 08:30 Dose: 10 mg Latanoprost (Xalatan 0.005% Oph Soln) 1 drop EACH EYE HS ANDRES Stop: 08/15/20 20:59 Last Admin: 06/22/20 20:57 Dose: Not Given Levothyroxine Sodium (Synthroid) 0.1 mg PO QDAC ANDRES Stop: 08/15/20 07:29 Last Admin: 06/23/20 06:34 Dose: 0.1 mg Lorazepam (Ativan) 0.5 mg PO Q4HR PRN; Protocol PRN Reason: Anxiety Stop: 07/15/20 12:33 Last Admin: 06/23/20 08:31 Dose: 0.5 mg Magnesium Hydroxide (Milk Of Magnesia) 30 ml PO HS PRN PRN Reason: Constipation Multivitamins/Vitamin C (Theragran) 1 tab PO DAILY ANDRES Stop: 08/15/20 08:59 Last Admin: 06/23/20 08:31 Dose: 1 tab Pantoprazole Sodium (Protonix) 40 mg PO QDAC ANDRES Stop: 08/15/20 07:29 Last Admin: 06/23/20 06:34 Dose: 40 mg Quetiapine Fumarate (Seroquel) 50 mg PO BID ANDRES Stop: 08/19/20 16:59 Last Admin: 06/23/20 08:31 Dose: 50 mg Quetiapine Fumarate (Seroquel) 200 mg PO HS ANDRES Stop: 08/20/20 20:59 Last Admin: 06/22/20 20:52 Dose: 200 mg Zolpidem Tartrate (Ambien) 5 mg PO HS PRN PRN Reason: Insomnia Stop: 08/14/20 12:33 Last Admin: 06/19/20 20:26 Dose: 5 mg General: weak HEENT: NC/AT, PERRLA Neck: Supple Lungs: CTAB Cardiovascular: RRR Abdomen: soft Extremities: clear Neurological: no change Internal Medicine Assmt/Plan - Assessment Assessment: 1. Hyponatremia 2. HTN 3. Hypothyroidism 4. charley-Su - Plan Plan: continue to monitor hyponatremia recheck bmp continue supportive care continue synthroid d/w r.n. reviewed complete medical records Nutritional Asmnt/Malnutr-PDOC - Dietary Evaluation Malnutrition Findings (Please click <Entered> for more info): Nutritional Asmnt/Malnutrition Start: 06/19/20 13: 59 Text: Status: Complete Freq: Protocol: Document 06/19/20 14:00 RAGHU (Rec: 06/19/20 14:03 RAGHU [id number]) Nutritional Asmnt/Malnutrition Patient General Information Nutritional Screening Moderate Risk Diagnosis Grave Disability Hold Pertinent Medical Hx/Surgical Hx GERD, HTN, Anxiety, Osteoporosis, Hypothyroidism, Gastrinoma, Perforated Intestine Subjective Information Pt is a 64-year-old male admitted on 06/15 d/t hold for Grave Disability, delusions and confusion. Pt is eating an estimated 100% of meals since admit date (x3 days) Per Meal/Nutrition Activity Record. Dietary is currently providing an estimated 1750 kcals and 107 gm Pro to meet 100% kcal and 100+% Pro needs. Per Psychiatric evaluation, Pt admits depression, being unable to eat for the last 1-2 years. Visited pt in room, states hes eating fine. When asked about his appetite and previous eating habits he insisted, its done, it doesn t matter, pt would not say more after this. Anthropometrics HT: 57 WT: 130 LB (59.09 kg) BMI: 20.36 (normal) GI/ Skin Integrity GI: WNL, Soft, Non-tender, Flat BM: 06/17 x1 I/O: 240/Not Noted Skin: WNL, Intact Twan: 22 Diet Order: CCHO, Cardiac Estimated Energy Needs: ( Geriatric, CBW) 0528-7702 kcals (25-30 kcals/ kg) 60-70g Pro (1.0-1.2 g/kg) 9512-4585 ml (25-30 ml/kg) Current Diet Order/ Nutrition Support CCHO, Cardiac Patient / S.O Can Pertinent Medications Lipitor, Synthroid, MOM (PRN), Theragran, Protonix Pertinent Labs 06/16: Na 124, Cl 93 Nutritional Hx/Data Height 1.7 m Height (Calculated Centimeters) 170.2 Current Weight (lbs) 58.967 kg Weight (Calculated Kilograms) 59.0 Weight (Calculated Grams) 98529.0 [place] Body Weight 148 LB (67.27 kg) % [place] Body Weight 88 Body Mass Index (BMI) 20.3 Weight Status Approriate GI Symptoms Last BM 06/17 x1 Skin Integrity/Comment: Skin: WNL, Intact Twan: 22 Current %PO Good (75-100%) Estimated Nutritional Goals BEE in Kcals: Using Current wt Calories/Kcals/Kg 25-30 Kcals Calculated 9290-1908 Protein: Using Current wt Protein g/k.0-1.2 Protein Calculated 60-70 Fluid: ml 5869-8890 ml (25-30 ml/kg) Nutritional Problem 1. Problem Problem Altered nutrition related labs Etiology r/t electrolyte imbalance Signs/Symptoms: aeb labs (06/16) Na 124, Cl 93. Malnutrition Related to Morbid Obesity Malnutrition related to morbid obesity No Intervention/Recommendation Comments Continue CCHO, Cardiac diet as tolerated. Expected Outcomes/Goals Expected Outcomes/Goals 1.PO intake to continue to meet >75% of estimated nutritional needs. 2.Monitor PO intake, wt, nutrition related labs to trend WNL, and skin integrity. 3.F/U as low risk in 7-10 days , 06/26-06/29.
--- NOTE | 2020-06-23 18:47 | Progress Notes ---
DATE: 06/23/2020 SUBJECTIVE: Case was discussed with staff of the patient, reviewed records. The patient continues to be somewhat confused, unable to participate in meaningful conversation saying to himself. Continues to be unable to make safe plan for self-care. His family does not want him to go home, though when I talked to the primary care physician. He felt he has a very loving family who will take care of him if he is to go home; however, I am not sure of the condition of the situation change. He is sleeping well, eating well. He has been taking medication with no side effects, no sedation, no nausea, no extrapyramidal symptoms. He was supposed to have a [place] hearing today; however, that was canceled as he has been taking medication in the past few days with no side effects. I will continue outpatient group therapy, milieu therapy, and adjust medications as needed. JOB# [id number] MTDOpal
[2020-06-24] MEDS: Levothyroxine 0.1 Mg Tab PO SCH (06:37)
[2020-06-24] MEDS: Pantoprazole 40 mg EC Tab PO SCH (06:37)
[2020-06-24] MEDS: Multivitamin Tab PO SCH (08:26)
--- NOTE | 2020-06-24 14:29 | Progress Notes ---
DATE: 06/24/[address] Knox. SUBJECTIVE: The patient was interviewed. Case was discussed with staff. Chart and records were reviewed. Per the staff, the patient has been severely depressed, isolating, withdrawn, not coming out of his room. The patient was visited at bedside this morning. The patient reports that he is feeling "okay." Admits to depression, admits to feeling sad and also feeling fatigued, wanting to remain in bed, appears to be somewhat confused, but able to maintain with the interview fairly well. No side effects have been noted to his medication. MENTAL STATUS EXAMINATION: The patient is an elderly, thin male lying in the hospital bed. Limited eye contact. Speech is soft. Mood and affect appear to be depressed and constricted. Thought process is concrete. Unable to assess for any suicidal or homicidal thoughts due to limited cooperation. Unable to assess for hallucinations or paranoia. He is alert and oriented x 2. Insight, judgment and impulse control appear to be limited. ASSESSMENT AND PLAN: We will continue the patient's acute psychiatric hospitalization given the severity of his symptoms. Also, encouraged the patient to verbalize his needs and participate in group and milieu therapy. We will also continue his medications as prescribed. JOB# [id number]
--- NOTE | 2020-06-24 14:46 | Internal Medicine Prog Note ---
Internal Medicine Subjective - Subjective Service Date: 06/24/20 Patient seen and examined:: without staff (no polyuria, no polyphagia, no polydypsia) Patient is:: awake Patient Complaints of:: congestion Per staff patient has:: no adverse event, no episodes of fall Internal Medicine Objective - Results Result Diagrams: 06/19/20 09:30 Recent Labs: Laboratory Last Values Sodium 125 mmol/L (136-145) L 06/19/20 09:30 Potassium 4.0 mmol/L (3.5-5.1) 06/19/20 09:30 Chloride 95 mmol/L (98-107) L 06/19/20 09:30 Carbon Dioxide 20 mmol/L (23-29) L 06/19/20 09:30 Anion Gap 14 (5-15) 06/19/20 09:30 BUN 22 mg/dL (8-21) H 06/19/20 09:30 Creatinine 0.91 mg/dL (0.70-1.30) 06/19/20 09:30 Glucose 103 mg/dL (70-99) H 06/19/20 09:30 POC Glucose 97 MG/DL (70 - 105) 06/15/20 11:59 Calcium 9.4 mg/dL (8.4-10.2) 06/19/20 09:30 Total Bilirubin 0.9 mg/dL (0.0-1.0) 06/19/20 09:30 AST 47 U/L (10-37) H 06/19/20 09:30 ALT 37 U/L (12-78) 06/19/20 09:30 Alkaline Phosphatase 49 U/L (46-116) 06/19/20 09:30 Total Protein 6.9 g/dL (6.4-8.3) 06/19/20 09:30 Albumin 3.8 g/dL (3.4-5.0) 06/19/20 09:30 Triglycerides 59 mg/dL (30-150) 06/16/20 10:33 Cholesterol 141 mg/dL (<200) 06/16/20 10:33 LDL Cholesterol 59 mg/dL (0-129) 06/16/20 10:33 HDL Cholesterol 73 mg/dL (>45) 06/16/20 10:33 TSH 11.32 uIU/ml (0.358-3.740) H 06/24/20 08:30 - Physical Exam Vitals and I&O: Vital Signs Temp 97.9 F 06/24/20 06:26 Pulse 72 06/24/20 06:26 Resp 16 06/24/20 07:55 BP 115/76 06/24/20 06:26 Pulse Ox 97 06/24/20 06:26 Intake & Output 06/23/20 06/24/20 06/24/20 18:59 06:59 18:59 Intake Total 400 360 Balance 400 360 Intake: Oral 400 360 Other: # Voids 3 1 # Bowel Movements 0 0 Active Medications: Current Medications Acetaminophen (Tylenol Extra Strength) 1,000 mg PO Q6H PRN PRN Reason: Pain (Mild 1-3) Stop: 08/14/20 18:44 Last Admin: 06/17/20 20:15 Dose: 1,000 mg Atorvastatin Calcium (Lipitor) 40 mg PO HS ANDRES; Protocol Stop: 08/14/20 20:59 Last Admin: 06/23/20 21:21 Dose: 40 mg Diphenhydramine HCl (Benadryl) 50 mg PO QID PRN PRN Reason: Itching Stop: 08/15/20 17:21 Last Admin: 06/18/20 06:31 Dose: 50 mg Escitalopram Oxalate (Lexapro) 10 mg PO DAILY ANDRES; Protocol Stop: 08/16/20 08:59 Last Admin: 06/24/20 08:25 Dose: 10 mg Latanoprost (Xalatan 0.005% Ophth Soln) 1 drop EACH EYE HS ANDRES Stop: 08/15/20 20:59 Last Admin: 06/23/20 21:21 Dose: 1 drop Levothyroxine Sodium (Synthroid) 0.1 mg PO QDAC ANDRES Stop: 08/15/20 07:29 Last Admin: 06/24/20 06:37 Dose: 0.1 mg Lorazepam (Ativan) 0.5 mg PO Q4HR PRN; Protocol PRN Reason: Anxiety Stop: 07/15/20 12:33 Last Admin: 06/23/20 08:31 Dose: 0.5 mg Magnesium Hydroxide (Milk Of Magnesia) 30 ml PO HS PRN PRN Reason: Constipation Multivitamins/Vitamin C (Theragran) 1 tab PO DAILY ANDRES Stop: 08/15/20 08:59 Last Admin: 06/24/20 08:26 Dose: 1 tab Pantoprazole Sodium (Protonix) 40 mg PO QDAC ANDRES Stop: 08/15/20 07:29 Last Admin: 06/24/20 06:37 Dose: 40 mg Quetiapine Fumarate (Seroquel) 50 mg PO BID ANDRES Stop: 08/19/20 16:59 Last Admin: 06/24/20 08:26 Dose: 50 mg Quetiapine Fumarate (Seroquel) 200 mg PO HS ANDRES Stop: 08/20/20 20:59 Last Admin: 06/23/20 21:21 Dose: 200 mg Zolpidem Tartrate (Ambien) 5 mg PO HS PRN PRN Reason: Insomnia Stop: 08/14/20 12:33 Last Admin: 06/19/20 20:26 Dose: 5 mg General: weak HEENT: NC/AT, PERRLA Neck: Supple Lungs: CTAB Cardiovascular: RRR Abdomen: soft Extremities: clear Neurological: no change Internal Medicine Assmt/Plan - Assessment Assessment: 1. Hyponatremia 2. HTN 3. Hypothyroidism 4. charley-Su - Plan Plan: increase synthroid to 112 mcg po daily fluid restriction d/w r.n. reviewed complete medical records Nutritional Asmnt/Malnutr-PDOC - Dietary Evaluation Malnutrition Findings (Please click <Entered> for more info): Nutritional Asmnt/Malnutrition Start: 06/19/20 13: 59 Text: Status: Complete Freq: Protocol: Document 06/19/20 14:00 RAGHU (Rec: 06/19/20 14:03 RAGHU [id number]) Nutritional Asmnt/Malnutrition Patient General Information Nutritional Screening Moderate Risk Diagnosis Grave Disability Hold Pertinent Medical Hx/Surgical Hx GERD, HTN, Anxiety, Osteoporosis, Hypothyroidism, Gastrinoma, Perforated Intestine Subjective Information Pt is a 64-year-old male admitted on 06/15 d/t hold for Grave Disability, delusions and confusion. Pt is eating an estimated 100% of meals since admit date (x3 days) Per Meal/Nutrition Activity Record. Dietary is currently providing an estimated 1750 kcals and 107 gm Pro to meet 100% kcal and 100+% Pro needs. Per Psychiatric evaluation, Pt admits depression, being unable to eat for the last 1-2 years. Visited pt in room, states hes eating fine. When asked about his appetite and previous eating habits he insisted, its done, it doesn t matter, pt would not say more after this. Anthropometrics HT: 57 WT: 130 LB (59.09 kg) BMI: 20.36 (normal) GI/ Skin Integrity GI: WNL, Soft, Non-tender, Flat BM: 06/17 x1 I/O: 240/Not Noted Skin: WNL, Intact Twan: 22 Diet Order: CCHO, Cardiac Estimated Energy Needs: ( Geriatric, CBW) 4800-2599 kcals (25-30 kcals/ kg) 60-70g Pro (1.0-1.2 g/kg) 9004-2589 ml (25-30 ml/kg) Current Diet Order/ Nutrition Support CCHO, Cardiac Patient / S.O Can Pertinent Medications Lipitor, Synthroid, MOM (PRN), Theragran, Protonix Pertinent Labs 06/16: Na 124, Cl 93 Nutritional Hx/Data Height 1.7 m Height (Calculated Centimeters) 170.2 Current Weight (lbs) 58.967 kg Weight (Calculated Kilograms) 59.0 Weight (Calculated Grams) 26903.0 [place] Body Weight 148 LB (67.27 kg) % [place] Body Weight 88 Body Mass Index (BMI) 20.3 Weight Status Approriate GI Symptoms Last BM 06/17 x1 Skin Integrity/Comment: Skin: WNL, Intact Twan: 22 Current %PO Good (75-100%) Estimated Nutritional Goals BEE in Kcals: Using Current wt Calories/Kcals/Kg 25-30 Kcals Calculated 0464-6654 Protein: Using Current wt Protein g/k.0-1.2 Protein Calculated 60-70 Fluid: ml 1033-2248 ml (25-30 ml/kg) Nutritional Problem 1. Problem Problem Altered nutrition related labs Etiology r/t electrolyte imbalance Signs/Symptoms: aeb labs (06/16) Na 124, Cl 93. Malnutrition Related to Morbid Obesity Malnutrition related to morbid obesity No Intervention/Recommendation Comments Continue CCHO, Cardiac diet as tolerated. Expected Outcomes/Goals Expected Outcomes/Goals 1.PO intake to continue to meet >75% of estimated nutritional needs. 2.Monitor PO intake, wt, nutrition related labs to trend WNL, and skin integrity. 3.F/U as low risk in 7-10 days , 06/26-06/29.
[2020-06-25] MEDS: Pantoprazole 40 mg EC Tab PO SCH (06:50)
[2020-06-25] MEDS: Levothyroxine 0.112 Mg Tab PO SCH (06:51)
[2020-06-25] MEDS: Multivitamin Tab PO SCH (08:15)
--- NOTE | 2020-06-25 10:55 | Progress Notes ---
DATE: 06/25/[address] Knox. SUBJECTIVE: The patient was interviewed. Case was discussed with staff. Chart and records were reviewed. Per the staff, the patient did get adequate sleep about 9 hours, remains mostly in his room, depressed, withdrawn, isolating to himself, also easily forgetful. The patient was interviewed this morning at bedside. He appears to be unkempt. He is awake. His speech is soft. He appears to be depressed with constricted affect, also somewhat disorganized and confused. Has no plan for self-care, has poor insight into his condition. No side effects to his medication. MENTAL STATUS EXAMINATION: Elderly male, lying in the hospital bed. Limited eye contact. Speech is soft. Mood and affect appear to be depressed and constricted. Thought process is concrete. Unable to assess for any suicidal or homicidal thoughts due to his limited cooperation, but the patient does appear to be somewhat internally preoccupied. He is alert and oriented to person and place. Insight, judgment and impulse control appear to be poor. ASSESSMENT AND PLAN: We will continue the patient's acute psychiatric hospitalization given the severity of symptoms. We also encouraged the patient to verbalize his needs and participate in group and milieu therapy and attend to his hygiene. We will also continue the medications as prescribed. No side effects have been noted. [facility]# [id number]
--- NOTE | 2020-06-25 14:25 | Internal Medicine Prog Note ---
Internal Medicine Subjective - Subjective Service Date: 06/25/20 Patient seen and examined:: without staff Patient is:: awake Patient Complaints of:: congestion Per staff patient has:: no adverse event, no episodes of fall Internal Medicine Objective - Results Result Diagrams: 06/19/20 09:30 Recent Labs: Laboratory Last Values Sodium 125 mmol/L (136-145) L 06/19/20 09:30 Potassium 4.0 mmol/L (3.5-5.1) 06/19/20 09:30 Chloride 95 mmol/L (98-107) L 06/19/20 09:30 Carbon Dioxide 20 mmol/L (23-29) L 06/19/20 09:30 Anion Gap 14 (5-15) 06/19/20 09:30 BUN 22 mg/dL (8-21) H 06/19/20 09:30 Creatinine 0.91 mg/dL (0.70-1.30) 06/19/20 09:30 Glucose 103 mg/dL (70-99) H 06/19/20 09:30 POC Glucose 97 MG/DL (70 - 105) 06/15/20 11:59 Calcium 9.4 mg/dL (8.4-10.2) 06/19/20 09:30 Total Bilirubin 0.9 mg/dL (0.0-1.0) 06/19/20 09:30 AST 47 U/L (10-37) H 06/19/20 09:30 ALT 37 U/L (12-78) 06/19/20 09:30 Alkaline Phosphatase 49 U/L (46-116) 06/19/20 09:30 Total Protein 6.9 g/dL (6.4-8.3) 06/19/20 09:30 Albumin 3.8 g/dL (3.4-5.0) 06/19/20 09:30 Triglycerides 59 mg/dL (30-150) 06/16/20 10:33 Cholesterol 141 mg/dL (<200) 06/16/20 10:33 LDL Cholesterol 59 mg/dL (0-129) 06/16/20 10:33 HDL Cholesterol 73 mg/dL (>45) 06/16/20 10:33 TSH 11.32 uIU/ml (0.358-3.740) H 06/24/20 08:30 - Physical Exam Vitals and I&O: Vital Signs Temp 98.0 F 06/25/20 06:20 Pulse 73 06/25/20 06:20 Resp 16 06/25/20 07:40 BP 131/89 06/25/20 06:20 Pulse Ox 96 06/25/20 06:20 Intake & Output 06/24/20 06/25/20 06/25/20 18:59 06:59 18:59 Intake Total 860 240 Balance 860 240 Intake: Oral 860 240 Other: # Voids 3 2 # Bowel Movements 1 Active Medications: Current Medications Acetaminophen (Tylenol Extra Strength) 1,000 mg PO Q6H PRN PRN Reason: Pain (Mild 1-3) Stop: 08/14/20 18:44 Last Admin: 06/17/20 20:15 Dose: 1,000 mg Atorvastatin Calcium (Lipitor) 40 mg PO HS ANDRES; Protocol Stop: 08/14/20 20:59 Last Admin: 06/24/20 20:59 Dose: 40 mg Diphenhydramine HCl (Benadryl) 50 mg PO QID PRN PRN Reason: Itching Stop: 08/15/20 17:21 Last Admin: 06/18/20 06:31 Dose: 50 mg Escitalopram Oxalate (Lexapro) 10 mg PO DAILY ANDRES; Protocol Stop: 08/16/20 08:59 Last Admin: 06/25/20 08:15 Dose: 10 mg Latanoprost (Xalatan 0.005% Ophth Soln) 1 drop EACH EYE HS ANDRES Stop: 08/15/20 20:59 Last Admin: 06/24/20 20:59 Dose: 1 drop Levothyroxine Sodium (Synthroid) 0.112 mg PO QDAC ANDRES Stop: 08/24/20 07:29 Last Admin: 06/25/20 06:51 Dose: 0.112 mg Lorazepam (Ativan) 0.5 mg PO Q4HR PRN; Protocol PRN Reason: Anxiety Stop: 07/15/20 12:33 Last Admin: 06/23/20 08:31 Dose: 0.5 mg Magnesium Hydroxide (Milk Of Magnesia) 30 ml PO HS PRN PRN Reason: Constipation Multivitamins/Vitamin C (Theragran) 1 tab PO DAILY ANDRES Stop: 08/15/20 08:59 Last Admin: 06/25/20 08:15 Dose: 1 tab Pantoprazole Sodium (Protonix) 40 mg PO QDAC ANDRES Stop: 08/15/20 07:29 Last Admin: 06/25/20 06:50 Dose: 40 mg Quetiapine Fumarate (Seroquel) 50 mg PO BID ANDRES Stop: 08/19/20 16:59 Last Admin: 06/25/20 08:15 Dose: 50 mg Quetiapine Fumarate (Seroquel) 200 mg PO HS ANDRES Stop: 08/20/20 20:59 Last Admin: 06/24/20 20:59 Dose: 200 mg Zolpidem Tartrate (Ambien) 5 mg PO HS PRN PRN Reason: Insomnia Stop: 08/14/20 12:33 Last Admin: 06/19/20 20:26 Dose: 5 mg General: weak HEENT: NC/AT, PERRLA Neck: Supple Lungs: CTAB Cardiovascular: RRR Abdomen: soft Extremities: clear Neurological: no change Internal Medicine Assmt/Plan - Assessment Assessment: 1. Hyponatremia 2. HTN 3. Hypothyroidism 4. charley-Su - Plan Plan: increase synthroid to 112 mcg po daily fluid restriction d/w r.n. reviewed complete medical records Nutritional Asmnt/Malnutr-PDOC - Dietary Evaluation Malnutrition Findings (Please click <Entered> for more info): Nutritional Asmnt/Malnutrition Start: 06/19/20 13: 59 Text: Status: Complete Freq: Protocol: Document 06/19/20 14:00 RAGHU (Rec: 06/19/20 14:03 RAGHU [id number]) Nutritional Asmnt/Malnutrition Patient General Information Nutritional Screening Moderate Risk Diagnosis Grave Disability Hold Pertinent Medical Hx/Surgical Hx GERD, HTN, Anxiety, Osteoporosis, Hypothyroidism, Gastrinoma, Perforated Intestine Subjective Information Pt is a 64-year-old male admitted on 06/15 d/t hold for Grave Disability, delusions and confusion. Pt is eating an estimated 100% of meals since admit date (x3 days) Per Meal/Nutrition Activity Record. Dietary is currently providing an estimated 1750 kcals and 107 gm Pro to meet 100% kcal and 100+% Pro needs. Per Psychiatric evaluation, Pt admits depression, being unable to eat for the last 1-2 years. Visited pt in room, states hes eating fine. When asked about his appetite and previous eating habits he insisted, its done, it doesn t matter, pt would not say more after this. Anthropometrics HT: 57 WT: 130 LB (59.09 kg) BMI: 20.36 (normal) GI/ Skin Integrity GI: WNL, Soft, Non-tender, Flat BM: 06/17 x1 I/O: 240/Not Noted Skin: WNL, Intact Twan: 22 Diet Order: CCHO, Cardiac Estimated Energy Needs: ( Geriatric, CBW) 4407-7245 kcals (25-30 kcals/ kg) 60-70g Pro (1.0-1.2 g/kg) 7372-8023 ml (25-30 ml/kg) Current Diet Order/ Nutrition Support CCHO, Cardiac Patient / S.O Can Pertinent Medications Lipitor, Synthroid, MOM (PRN), Theragran, Protonix Pertinent Labs 06/16: Na 124, Cl 93 Nutritional Hx/Data Height 1.7 m Height (Calculated Centimeters) 170.2 Current Weight (lbs) 58.967 kg Weight (Calculated Kilograms) 59.0 Weight (Calculated Grams) 62031.0 [place] Body Weight 148 LB (67.27 kg) % [place] Body Weight 88 Body Mass Index (BMI) 20.3 Weight Status Approriate GI Symptoms Last BM 06/17 x1 Skin Integrity/Comment: Skin: WNL, Intact Twan: 22 Current %PO Good (75-100%) Estimated Nutritional Goals BEE in Kcals: Using Current wt Calories/Kcals/Kg 25-30 Kcals Calculated 7135-0083 Protein: Using Current wt Protein g/k.0-1.2 Protein Calculated 60-70 Fluid: ml 8966-3021 ml (25-30 ml/kg) Nutritional Problem 1. Problem Problem Altered nutrition related labs Etiology r/t electrolyte imbalance Signs/Symptoms: aeb labs (06/16) Na 124, Cl 93. Malnutrition Related to Morbid Obesity Malnutrition related to morbid obesity No Intervention/Recommendation Comments Continue CCHO, Cardiac diet as tolerated. Expected Outcomes/Goals Expected Outcomes/Goals 1.PO intake to continue to meet >75% of estimated nutritional needs. 2.Monitor PO intake, wt, nutrition related labs to trend WNL, and skin integrity. 3.F/U as low risk in 7-10 days , 06/26-06/29.
[2020-06-26] MEDS: Levothyroxine 0.112 Mg Tab PO SCH (06:30)
[2020-06-26] MEDS: Pantoprazole 40 mg EC Tab PO SCH (06:30)
[2020-06-26] MEDS: Multivitamin Tab PO SCH (08:27)
--- NOTE | 2020-06-26 14:32 | Internal Medicine Prog Note ---
Internal Medicine Subjective - Subjective Service Date: 06/26/20 Patient seen and examined:: without staff Patient is:: awake Patient Complaints of:: congestion Per staff patient has:: no adverse event, no episodes of fall Internal Medicine Objective - Results Result Diagrams: 06/19/20 09:30 Recent Labs: Laboratory Last Values Sodium 125 mmol/L (136-145) L 06/19/20 09:30 Potassium 4.0 mmol/L (3.5-5.1) 06/19/20 09:30 Chloride 95 mmol/L (98-107) L 06/19/20 09:30 Carbon Dioxide 20 mmol/L (23-29) L 06/19/20 09:30 Anion Gap 14 (5-15) 06/19/20 09:30 BUN 22 mg/dL (8-21) H 06/19/20 09:30 Creatinine 0.91 mg/dL (0.70-1.30) 06/19/20 09:30 Glucose 103 mg/dL (70-99) H 06/19/20 09:30 POC Glucose 97 MG/DL (70 - 105) 06/15/20 11:59 Calcium 9.4 mg/dL (8.4-10.2) 06/19/20 09:30 Total Bilirubin 0.9 mg/dL (0.0-1.0) 06/19/20 09:30 AST 47 U/L (10-37) H 06/19/20 09:30 ALT 37 U/L (12-78) 06/19/20 09:30 Alkaline Phosphatase 49 U/L (46-116) 06/19/20 09:30 Total Protein 6.9 g/dL (6.4-8.3) 06/19/20 09:30 Albumin 3.8 g/dL (3.4-5.0) 06/19/20 09:30 Triglycerides 59 mg/dL (30-150) 06/16/20 10:33 Cholesterol 141 mg/dL (<200) 06/16/20 10:33 LDL Cholesterol 59 mg/dL (0-129) 06/16/20 10:33 HDL Cholesterol 73 mg/dL (>45) 06/16/20 10:33 TSH 11.32 uIU/ml (0.358-3.740) H 06/24/20 08:30 - Physical Exam Vitals and I&O: Vital Signs Temp 0 F 06/26/20 06:33 Pulse 81 06/25/20 20:00 Resp 18 06/26/20 08:00 BP 114/82 06/25/20 20:00 Pulse Ox 97 06/25/20 20:00 Intake & Output 06/25/20 06/26/20 06/26/20 18:59 06:59 18:59 Intake Total 1200 Balance 1200 Intake: Oral 1200 Other: # Voids 4 3 # Bowel Movements 0 0 Active Medications: Current Medications Acetaminophen (Tylenol Extra Strength) 1,000 mg PO Q6H PRN PRN Reason: Pain (Mild 1-3) Stop: 08/14/20 18:44 Last Admin: 06/17/20 20:15 Dose: 1,000 mg Atorvastatin Calcium (Lipitor) 40 mg PO HS ANDRES; Protocol Stop: 08/14/20 20:59 Last Admin: 06/25/20 21:05 Dose: 40 mg Diphenhydramine HCl (Benadryl) 50 mg PO QID PRN PRN Reason: Itching Stop: 08/15/20 17:21 Last Admin: 06/18/20 06:31 Dose: 50 mg Escitalopram Oxalate (Lexapro) 10 mg PO DAILY ANDRES; Protocol Stop: 08/16/20 08:59 Last Admin: 06/26/20 08:27 Dose: 10 mg Latanoprost (Xalatan 0.005% Ophth Soln) 1 drop EACH EYE HS ANDRES Stop: 08/15/20 20:59 Last Admin: 06/25/20 21:06 Dose: 1 drop Levothyroxine Sodium (Synthroid) 0.112 mg PO QDAC ANDRES Stop: 08/24/20 07:29 Last Admin: 06/26/20 06:30 Dose: 0.112 mg Lorazepam (Ativan) 0.5 mg PO Q4HR PRN; Protocol PRN Reason: Anxiety Stop: 07/15/20 12:33 Last Admin: 06/23/20 08:31 Dose: 0.5 mg Magnesium Hydroxide (Milk Of Magnesia) 30 ml PO HS PRN PRN Reason: Constipation Multivitamins/Vitamin C (Theragran) 1 tab PO DAILY ANDRES Stop: 08/15/20 08:59 Last Admin: 06/26/20 08:27 Dose: 1 tab Pantoprazole Sodium (Protonix) 40 mg PO QDAC ANDRES Stop: 08/15/20 07:29 Last Admin: 06/26/20 06:30 Dose: 40 mg Quetiapine Fumarate (Seroquel) 50 mg PO BID ANDRES Stop: 08/19/20 16:59 Last Admin: 06/26/20 08:27 Dose: 50 mg Quetiapine Fumarate 200 mg/ (Quetiapine Fumarate 50 mg) 250 mg PO HS ANDRES Stop: 08/25/20 20:59 Zolpidem Tartrate (Ambien) 5 mg PO HS PRN PRN Reason: Insomnia Stop: 08/14/20 12:33 Last Admin: 06/25/20 21:06 Dose: 5 mg General: weak HEENT: NC/AT, PERRLA Neck: Supple Lungs: CTAB Cardiovascular: RRR Abdomen: soft Extremities: clear Neurological: no change Internal Medicine Assmt/Plan - Assessment Assessment: 1. Hyponatremia 2. HTN 3. Hypothyroidism 4. charley-Su - Plan Plan: repeat bmp continue synthroid at 112mcg daily fluid restriction d/w r.n. reviewed complete medical records Nutritional Asmnt/Malnutr-PDOC - Dietary Evaluation Malnutrition Findings (Please click <Entered> for more info): Nutritional Asmnt/Malnutrition Start: 06/19/20 13: 59 Text: Status: Complete Freq: Protocol: Document 06/19/20 14:00 RAGHU (Rec: 06/19/20 14:03 RAGHU [email or web address] [id number]) Nutritional Asmnt/Malnutrition Patient General Information Nutritional Screening Moderate Risk Diagnosis Grave Disability Hold Pertinent Medical Hx/Surgical Hx GERD, HTN, Anxiety, Osteoporosis, Hypothyroidism, Gastrinoma, Perforated Intestine Subjective Information Pt is a 64-year-old male admitted on 06/15 d/t hold for Grave Disability, delusions and confusion. Pt is eating an estimated 100% of meals since admit date (x3 days) Per Meal/Nutrition Activity Record. Dietary is currently providing an estimated 1750 kcals and 107 gm Pro to meet 100% kcal and 100+% Pro needs. Per Psychiatric evaluation, Pt admits depression, being unable to eat for the last 1-2 years. Visited pt in room, states hes eating fine. When asked about his appetite and previous eating habits he insisted, its done, it doesn t matter, pt would not say more after this. Anthropometrics HT: 57 WT: 130 LB (59.09 kg) BMI: 20.36 (normal) GI/ Skin Integrity GI: WNL, Soft, Non-tender, Flat BM: 06/17 x1 I/O: 240/Not Noted Skin: WNL, Intact Twan: 22 Diet Order: CCHO, Cardiac Estimated Energy Needs: ( Geriatric, CBW) 9551-5616 kcals (25-30 kcals/ kg) 60-70g Pro (1.0-1.2 g/kg) 8961-5331 ml (25-30 ml/kg) Current Diet Order/ Nutrition Support CCHO, Cardiac Patient / S.O Can Pertinent Medications Lipitor, Synthroid, MOM (PRN), Theragran, Protonix Pertinent Labs 06/16: Na 124, Cl 93 Nutritional Hx/Data Height 1.7 m Height (Calculated Centimeters) 170.2 Current Weight (lbs) 58.967 kg Weight (Calculated Kilograms) 59.0 Weight (Calculated Grams) 66533.0 [place] Body Weight 148 LB (67.27 kg) % [place] Body Weight 88 Body Mass Index (BMI) 20.3 Weight Status Approriate GI Symptoms Last BM 06/17 x1 Skin Integrity/Comment: Skin: WNL, Intact Twan: 22 Current %PO Good (75-100%) Estimated Nutritional Goals BEE in Kcals: Using Current wt Calories/Kcals/Kg 25-30 Kcals Calculated 3587-0691 Protein: Using Current wt Protein g/k.0-1.2 Protein Calculated 60-70 Fluid: ml 8614-7419 ml (25-30 ml/kg) Nutritional Problem 1. Problem Problem Altered nutrition related labs Etiology r/t electrolyte imbalance Signs/Symptoms: aeb labs (06/16) Na 124, Cl 93. Malnutrition Related to Morbid Obesity Malnutrition related to morbid obesity No Intervention/Recommendation Comments Continue CCHO, Cardiac diet as tolerated. Expected Outcomes/Goals Expected Outcomes/Goals 1.PO intake to continue to meet >75% of estimated nutritional needs. 2.Monitor PO intake, wt, nutrition related labs to trend WNL, and skin integrity. 3.F/U as low risk in 7-10 days , 06/26-06/29.
--- NOTE | 2020-06-26 23:10 | Progress Notes ---
DATE: 06/26/2020 Case was discussed with staff of the patient, reviewed records. The patient continues to be confused. He is not sure where he is. He is not sure why he is here. He is demented, confused, and unkempt. He continues to be depressed, continues to have poor insight. The family actually does not want him to go home. They want to go to the [facility] facility in [place] to be close to them. The patient has been compliant with the medication with no side effects, no sedation, no nausea, and no extrapyramidal symptoms. I will be increasing his Seroquel at bedtime to 250 mg. No side effects with the medication, no sedation, no nausea, no extrapyramidal symptoms. We will continue outpatient group therapy, milieu therapy, adjust medication as needed. JOB# [id number]
[2020-06-27] MEDS: Levothyroxine 0.112 Mg Tab PO SCH (06:45)
[2020-06-27] MEDS: Pantoprazole 40 mg EC Tab PO SCH (06:45)
[2020-06-27] MEDS: Multivitamin Tab PO SCH (08:49)
--- NOTE | 2020-06-27 12:36 | Discharge Summary ---
DATE OF DISCHARGE: 06/27/2020 DISCHARGED TO [facility]: 06/27/2020. IDENTIFYING INFORMATION: The patient is a 64-year-old male. HISTORY OF PRESENT ILLNESS: He is on a hold for grave disability, unable to provide for self-care, worsening mood, psychotic symptoms, delusional, and confused. The patient himself was not a very good historian. He admits that he has been depressed last 1-2 years, unable to sleep, unable to eat, hearing voices telling him that, "Satan is coming." They are not command in nature. He has been hearing voices all the time for the last 2-3 years. He denies any current intent to harm himself or anyone, but paranoid and delusional. This has been going on for at least 2 years with a history of prior hospitalization 2 years ago. He was not sure if this is correct. He denies any current substance abuse; however, he has used cocaine and THC. He has been sober for years. The patient was diagnosed with depression with psychosis. COURSE IN THE HOSPITAL: The patient was started on medication. Lexapro increased to 10 mg a day. Atorvastatin was continued 40 mg at bedtime and eye drops. Levothyroxine was continued. Also pantoprazole was continued. I added Seroquel, the dose was increased over the course of his stay to 50 mg twice a day and 250 mg at bedtime. The patient progressively got better; however, he continues to be confused. He is probably demented, unable to participate in a meaningful conversation. Continues to be paranoid, isolating himself. However, the patient was found to have positive COVID-19. I talked to his medical doctor who has been taking care of him for the last 10 years and he reports family is very caring and recently they lost their home in [place] and now they live in a small apartment. His informed the staff that she does not want him to come home and wanted him to go to a SNF facility at the [facility] next to their house in [place]. However, the patient had a positive COVID-19, was transferred to [facility] for further evaluation and management of positive COVID-19. CONDITION ON DISCHARGE: The patient is unable to care for himself, unable to function well socially because of his delusions, paranoia, and confusion. The patient is unable to care for his ADLs. FINAL DIAGNOSES: 1. Major depression,recurrent severe with psychosis. 2. Cognitive disorder, not otherwise specified. 3. Possible dementia. MEDICAL DIAGNOSES: 1. Positive for COVID-19, not otherwise specified. 2. Gastroesophageal reflux disease. 3. Hypothyroidism. 4. Hyperlipidemia. PLAN: The patient will be going to [facility] for further evaluation and management of positive COVID-19. The patient will follow up with the psychiatrist, primary care physician and therapist. EXPECTED OUTCOME: Stable if the patient complies with the above. JOB# [id number] [facility]
[2020-06-27 23:02] LABS: CALCIUM SERUM 9.2 mg/dL (8.4-10.2); CREATININE - SERUM 1.07 mg/dL (0.70-1.30); POTASSIUM SERUM 4.1 mmol/L (3.5-5.1)
== END 2020-06-27 19:00 | disposition short-term general hospital (02) | DRG 885 ==
LOC: GERO 11:35
PROVIDERS: ADMIT Psychiatry & Neurology Psychiatry; ATTEND Psychiatry & Neurology Psychiatry
DX: F33.3 Major depressive disorder, recurrent, severe with psychotic symptoms (principal); U07.1 COVID-19; E87.1 Hypo-osmolality and hyponatremia; K21.9 Gastro-esophageal reflux disease without esophagitis; D37.9 Neoplasm of uncertain behavior of digestive organ, unspecified; I10 Essential (primary) hypertension; E03.9 Hypothyroidism, unspecified; M81.0 Age-related osteoporosis without current pathological fracture; F41.9 Anxiety disorder, unspecified; F03.90 Unspecified dementia, unspecified severity, without behavioral disturbance, psychotic disturbance, mood disturbance, and anxiety; E16.4 Increased secretion of gastrin; Z87.19 Personal history of other diseases of the digestive system; Z88.5 Allergy status to narcotic agent
CPT/HCPCS: 36415-UA; 80048-TC; 80053-TC; 80061-TC; 82948-90; 83036-90; 84443-TC; G0410; J1200; J1630; J2060; U0003-CS; Z7610